=== PATIENT | male | born 1985 | race Caucasian/White ===

== ENCOUNTER → 2021-01-24 | Outpatient (CLI) | payer OTHER ==
--- NOTE | ~2021-01-24 | PFR/MVV ---
[facility] [place] [address] PULMONARY FUNCTION MVV/REPORT Name: DEBBIEJORGE Room #: REG CLAudrey Hong.#: [id number] Admission: 01/24/21 Attend Phys: Richie Field DO Discharge: Date of : 81 Report #: [id number] THIS REPORT FOR: //name// >> SPIROMETRY: (BTPS) Height: 73 in cm Weight: 290 lbs kg Exam Date: 01/24/21 PRE-RX POST-RX PRED BEST %PRED BEST %PRED %CHG FVC LITERS . 5.64 . 4.97 . 88 . 5.69 . 101 . 14 FEV1 LITERS . 4.27 . 3.46 . 81 . 4.00 . 94 . 16 FEV1/FVC % . 75 . 70 . 92 . 70 . 93 . 1 BWZ79-93% L/Sec . 4.28 . 2.32 . 54 . 2.86 . 67 . 23 PEF L/SEC . 10.14 . 6.53 . 64 . 8.19 . 81 . 25 FEF50/FIF50 UNITLESS . 5.76 . 2.92 . 51 . 3.57 . 62 . 22 MVV L/Min . . . f 1/Min . . . >> LUNG VOLUMES: (BTPS) PRE-RX POST-RX PRED AVG %PRED AVG %PRED %CHG VC Liters . 5.64 . 4.97 . 88 . . . TLC Liters . 7.72 . 6.78 . 88 . . . RV Liters . 2.19 . 1.81 . 83 . . . RV/TLC % . 29 . 27 . 91 . . . FRC PL Liters . 3.42 . 2.63 . 77 . . . FRC N2 Liters . 3.42 . . . . . ERV Liters . 1.87 . 0.34 . 18 . . . IC Liters . 3.73 . 4.15 . 111 . . . >> DIFFUSION: DLCO ml/Min/mmHg . 37.0 . 36.7 . 99 . . . DL [place] ml/Min/mmHg . 37.0 . 26.7 . 99 . . . DLCO/VA ml/Min/mmHg . 4.37 . 5.58 . 128 . . . VA Liters . 7.70 . 6.58 . 85 . . . COMMENTS: COMMENTS: >> RESISTANCE: [facility] [address] [place] [address] PULMONARY FUNCTION MVV/REPORT Name: JORGE LEWIS Room #: REG RAMONITA Hong.#: [id number] Admission: 01/24/21 Attend Phys: Richie Field DO Discharge: Date of : 81 Report #: [id number] PRE-RX PRED AVG %PRED Raw Total cmH20/L/Sec . . 3.58 . Raw Insp cmH20/L/Sec . . 3.55 . Raw Exp cmH20/L/Sec . . 3.90 . Raw cmH20/L/Sec . 1.33 . 1.78 . 134 Gaw L/Sec/cmH20 . 0.821 . 0.562 . 68 sRaw cmH20 Sec . 4.54 . 8.74 . 193 sGaw l/cmH20 Sec . 0.220 . 0.114 . 52 Vtq Liters . . 4.91 . # = OUTSIDE 95% CONFIDENCE INTERVAL CALIBRATION: PRED: 3.00 ACTUAL: EXP 3.01 INSP 3.02 [facility]-OL10-06 [facility]-05 N-1804-4 >> INTERPRETATION/IMPRESSION: DATE OF SERVICE: 01/26/2021 PULMONARY FUNCTION STUDIES: FEV1 is 3.46 liters (81% predicted), FVC is 4.97 liters (88% predicted). FEV1/FVC ratio is 70%. There is a significant response to bronchodilator therapy. FEV1 increased to 4.00 liters (16% change). FVC increased to 5.69 liters (14% change). Total lung capacity is 6.78 liters (88% predicted). RV is 1.81 liters (83% predicted). Diffusing capacity is 99%. IMPRESSION: Pulmonary function studies are consistent with a mild obstructive airflow defect. There is a significant response to bronchodilator therapy. Obstruction ratio does not resolve. Diffusing capacity is normal. Lung volumes are normal. By: Gasper Olivia MD /nt
== END ==
LOC: PUL 13:01
PROVIDERS: ATTEND Chiropractor
DX: J45.998 Other asthma (principal)